=== PATIENT | female | born 1970 | race Caucasian/White ===

== ENCOUNTER → 2019-11-11 | Outpatient (REF) | payer OTHER | LOC: M LAB REF 16:04 | PROVIDERS: ATTEND Otolaryngology | DX: K14.0 Glossitis (principal) ==

== ENCOUNTER 2023-03-27 06:21 | Day surgery (SDC) | payer OTHER ==
[~2023-03-27] VITALS: Ht 165.1 cm; Wt 73.9 kg
[~2023-03-27 06:21] MED LIST: BREO1INH3; FLUO-96 PO; GNPTAB36 PO; IBUP80TA; OXYC-517; SPIR1CAP INH; UNRESOLVED CLARIFICATION ENTRY XX SCH; VARE1TAB2 PO
[2023-03-27] MEDS ORDERED: LR 1,000 ML IV SCH ×2 (06:30→08:15)
[2023-03-27] MEDS ORDERED: MIDAZOLAM INJ 2MG/2ML VIAL As Ordered ONE (07:12)
[2023-03-27] MEDS ORDERED: fentaNYL 100 MCG/2 ML INJECTION As Ordered ONE (07:13)
[2023-03-27] MEDS ORDERED: ROCURONIUM BROMIDE 50MG/5ML VIAL As Ordered ONE (07:14)
[2023-03-27] MEDS ORDERED: KETOROLAC 60MG 2ML VIAL As Ordered ONE (07:14)
[2023-03-27] MEDS ORDERED: LIDOCAINE 2% 100MG/5ML SDV (FOR ANES.) As Ordered ONE (07:14)
[2023-03-27] MEDS ORDERED: propofoL 200 MG/20 ML VIAL As Ordered ONE (07:14)
[2023-03-27] MEDS ORDERED: OXYMETAZOLINE 0.05% NASAL SPRAY (AFRIN) As Ordered ONE (07:15)
[2023-03-27] MEDS ORDERED: METHYLENE BLUE 0.5% (5MG/ML) 10 ML AMP (PROVAYBLUE) As Ordered ONE (07:15)
[2023-03-27] MEDS ORDERED: LIDOCAINE W/EPINEPHRINE 1% 20ML VIAL As Ordered ONE (07:16)
[2023-03-27] MEDS ORDERED: SUGAMMADEX SODIUM 500 MG/5 ML VIAL (BRIDION) As Ordered ONE (07:18)
[2023-03-27] MEDS ORDERED: ONDANSETRON 4MG 2ML VIAL As Ordered ONE (07:19)
[2023-03-27] MEDS ORDERED: ONDANSETRON 4MG 2ML VIAL IV PRN (08:15)
[2023-03-27] MEDS ORDERED: fentaNYL 100 MCG/2 ML INJECTION IV PRN (08:15)
[2023-03-27 11:09] VITALS: BP 122/64; TEMP 97.8; O2SAT 84
== END 2023-03-27 11:14 | disposition home or self-care (01) ==
LOC: M SDC 06:21
PROVIDERS: ATTEND Otolaryngology
DX: J38.3 Other diseases of vocal cords (principal); J44.9 Chronic obstructive pulmonary disease, unspecified; G47.30 Sleep apnea, unspecified; Z79.899 Other long term (current) drug therapy; Z87.891 Personal history of nicotine dependence
CPT/HCPCS: 31536; 88305; J1100; J2250; J2405; J3010; Q9968

== ENCOUNTER 2024-07-28 18:10 | Inpatient (IN) | payer BC, OTHER ==
[~2024-07-28] VITALS: Ht 165.1 cm; Wt 74.0 kg
[~2024-07-28 18:10] MED LIST changes: -UNRESOLVED CLARIFICATION ENTRY XX SCH
[2024-07-28 19:58] LABS: BASO # 0.1 10^3/uL (0.0-0.2); BASO % 0.5 % (0.0-1.0); EOS # 0.2 10^3/uL (0.0-0.5); EOS % 1.6 % (0.0-3.0); HEMATOCRIT 38.3 % (36.0-47.0); HEMOGLOBIN 12.5 g/dl (12.0-15.5); LYMPH # 1.5 10^3/uL (1.5-5.0); LYMPH % 15.7 % (24.0-44.0); MEAN CORPUSCULAR HEMOGLOBIN 30.9 pg (27.0-33.0); MEAN CORPUSCULAR HGB CONC 32.6 g/dl (32.0-36.5); MEAN CORPUSCULAR VOLUME 94.6 fl (80.0-96.0); MONO # 0.5 10^3/uL (0.0-0.8); MONO % 5.2 % (2.0-8.0); NEUTROPHILS # 7.2 10^3/uL (1.5-8.5); NEUTROPHILS % 76.8 % (36.0-66.0); PLATELET COUNT, AUTOMATED 267 10^3/uL (150-450); RED BLOOD COUNT 4.05 10^6/uL (4.00-5.40); WHITE BLOOD COUNT 9.3 10^3/uL (4.0-10.0)
[2024-07-28] MEDS: MORPHINE 4 MG/ML 1ML VIAL IV ONE (20:27)
[2024-07-28] MEDS: NS (Normal Saline) 0.9% 1,000 ML IV SCH ×2 (20:28→23:45)
[2024-07-28 20:31] LABS: LIPASE 384 U/L (12-53)
[2024-07-28 20:33] LABS: ALBUMIN 3.7 G/DL (3.2-5.2); ALKALINE PHOSPHATASE 121 U/L (35-104); ALT/SGPT 16 U/L (7.0-40); AST/SGOT 14 U/L (<34); BILIRUBIN,DIRECT 0.1 MG/DL (<0.4); BILIRUBIN,TOTAL 0.3 MG/DL (0.3-1.2); BLOOD UREA NITROGEN 12 MG/DL (9-23); CALCIUM LEVEL 9.2 MG/DL (8.5-10.1); CARBON DIOXIDE LEVEL 35 MMOL/L (20-31); CHLORIDE LEVEL 97 MMOL/L (98-107); CK-MB VALUE MASS 2.2 NG/ML (<3.6); CPK CREATINE PHOSPHOKINASE 178 U/L (34-145); CREATININE FOR GFR 0.72 MG/DL (0.55-1.30); GLOMERULAR FILTRATION RATE > 60.0 (>51); GLUCOSE, FASTING 103 MG/DL (60-100); MB/CK RELATIVE INDEX 1.23 (< OR =4); POTASSIUM SERUM 4.1 MMOL/L (3.5-5.1); SODIUM LEVEL 143 MMOL/L (136-145); TOTAL PROTEIN 7.1 G/DL (5.7-8.2)
[2024-07-28 21:42] LABS: CK-MB VALUE MASS 3.5 NG/ML (<3.6)
[2024-07-28 21:44] LABS: MB/CK RELATIVE INDEX 2.05 (< OR =4)
[2024-07-28] MEDS: GASTROGRAFIN SOLUTION 30ML PO SCH (21:52)
[2024-07-28] MEDS ORDERED: ISOVUE-370 76% 100ML VIAL As Ordered ONE (22:54)
[2024-07-28] MEDS ORDERED: ACETAMINOPHEN 325 MG TAB PO PRN (23:55)
[2024-07-28] MEDS ORDERED: KETOROLAC 30 MG/ML 1ML VIAL IV PRN (23:55)
[2024-07-28] MEDS ORDERED: MAALOX 30 ML SUSP *UDC PO PRN (23:55)
[2024-07-28] MEDS ORDERED: MOM 30ML SUSPENSION UDC PO PRN (23:55)
[2024-07-28] MEDS ORDERED: ONDANSETRON 4MG 2ML VIAL IV PRN (23:55)
[2024-07-29] VITALS (7 sets, daily range): BP systolic 97–128; BP diastolic 50–82; TEMP 97.9–98.6; O2SAT 94–98
[2024-07-29] MEDS ORDERED: CETI-24 PO (00:33)
[2024-07-29] MEDS ORDERED: ALPR0.25 PO (00:33)
[2024-07-29] MEDS ORDERED: BUDE10.7 INH (00:33)
[2024-07-29] MEDS ORDERED: D 50CAP2 PO (00:33)
[2024-07-29] MEDS ORDERED: IBUP-1022 PO (00:33)
[2024-07-29] MEDS ORDERED: MORP15TA2 PO (00:33)
[2024-07-29] MEDS ORDERED: ALBU8.5H INH (00:33)
[2024-07-29] MEDS ORDERED: HOME MED LIST COMPLETE! XX SCH (00:35)
[2024-07-29] MEDS: NS (Normal Saline) 0.9% 1,000 ML IV SCH (01:00)
[2024-07-29 01:23] LABS: VENOUS BASE EXCESS 1.4 (-2.0-2.0); VENOUS HCO3 27.3 MMOL/L (23.0-27.0); VENOUS O2 SATURATION 96.6 % (60.0-80.0); VENOUS PARTIAL PRESSURE CO2 48.3 mmHg (38.0-50.0); VENOUS PARTIAL PRESSURE O2 89.8 mmHg (30.0-50.0); VENOUS STANDARD HCO3 25.7 MMOL/L; VENOUS TOTAL CO2 28.8 MMOL/L (24.0-28.0)
[2024-07-29 01:42] LABS: INR 1.09; PARTIAL THROMBOPLASTIN TIME 34.5 SECONDS (24.8-34.2); PROTHROMBIN TIME 14.4 SECONDS (12.5-14.5)
[2024-07-29 01:57] LABS: MAGNESIUM LEVEL 1.9 MG/DL (1.8-2.4)
[2024-07-29 01:59] LABS: C REACTIVE PROTEIN QUANTITATIV 1.8 MG/DL (<1.0)
[2024-07-29] MEDS ORDERED: MORPHINE SULFATE TAB IMM. REL. 15 MG PO PRN (02:35)
[2024-07-29] MEDS ORDERED: ALBUTEROL 90 MCG/ACT 8GM HFA INHALER INH PRN (02:35)
[2024-07-29] MEDS: KETOROLAC 30 MG/ML 1ML VIAL IV PRN (03:24)
[2024-07-29 04:45] LABS: KETONE, URINE AUTO RFX NEGATIVE (NEGATIVE); LEUKOCYTE ESTERASE UR AUTO RFX NEGATIVE (NEGATIVE); NITRITE, URINE AUTO RFX NEGATIVE (NEGATIVE); RBC, URINE AUTO RFX 0 /HPF (0-3); SQUAM EPITHELIAL CELL UR AURFX 0 /HPF (0-6); WBC, URINE AUTO RFX 0 /HPF (0-3)
[2024-07-29 05:51] LABS: HEMATOCRIT 31.6 % (36.0-47.0); MEAN CORPUSCULAR HEMOGLOBIN 31.3 pg (27.0-33.0); MEAN CORPUSCULAR HGB CONC 33.2 g/dl (32.0-36.5); PLATELET COUNT, AUTOMATED 212 10^3/uL (150-450); RED BLOOD COUNT 3.36 10^6/uL (4.00-5.40); WHITE BLOOD COUNT 5.5 10^3/uL (4.0-10.0)
[2024-07-29 05:59] LABS: HEMOGLOBIN 10.5 g/dl (12.0-15.5)
[2024-07-29 06:32] LABS: ALBUMIN 2.9 G/DL (3.2-5.2); ALKALINE PHOSPHATASE 94 U/L (35-104); ALT/SGPT 11 U/L (7.0-40); AST/SGOT 11 U/L (<34); BILIRUBIN,TOTAL 0.3 MG/DL (0.3-1.2); BLOOD UREA NITROGEN 6 MG/DL (9-23); CALCIUM LEVEL 8.2 MG/DL (8.5-10.1); CARBON DIOXIDE LEVEL 32 MMOL/L (20-31); CHLORIDE LEVEL 105 MMOL/L (98-107); CREATININE FOR GFR 0.63 MG/DL (0.55-1.30); GLOMERULAR FILTRATION RATE > 60.0 (>51); GLUCOSE, FASTING 102 MG/DL (60-100); MAGNESIUM LEVEL 1.8 MG/DL (1.8-2.4); POTASSIUM SERUM 3.9 MMOL/L (3.5-5.1); SODIUM LEVEL 143 MMOL/L (136-145); TOTAL PROTEIN 5.7 G/DL (5.7-8.2); TRIGLYCERIDES LEVEL 72 MG/DL (<150)
[2024-07-29] MEDS: TIOTROPIUM INHALER/CAPSULE (SPIRIVA) INH SCH (08:00)
[2024-07-29] MEDS: SYMBICORT 160/4.5MCG INHALER 6GM INH SCH (08:00)
[2024-07-29] MEDS ORDERED: BUDESONIDE INH SCH (08:00)
[2024-07-29] MEDS ORDERED: FORMOTEROL INH SCH (08:00)
[2024-07-29] MEDS ORDERED: GLYCOPYRROLATE INH SCH (08:00)
[2024-07-29] MEDS ORDERED: DOCUSATE SODIUM 100MG CAPSULE PO SCH (09:00)
[2024-07-29] MEDS: ENOXAPARIN 40MG/0.4ML SYRINGE (J1650 PER 10MG) SC SCH (09:00)
[2024-07-29] MEDS: PANTOPRAZOLE 40MG VIAL IV SCH ×2 (11:00→20:29)
[2024-07-29] MEDS: CETIRIZINE (ZyrTEC) 10 MG TAB PO SCH (11:15)
[2024-07-29] MEDS: SUCRALFATE SUSP 1GM/10ML UD PO SCH (12:00)
[2024-07-29] MEDS: KETOROLAC 30 MG/ML 1ML VIAL IV SCH (13:26)
[2024-07-29] MEDS: MORPHINE 2 MG/ML 1ML VIAL IV PRN (13:26)
[2024-07-30 04:00] VITALS: BP 101/50; TEMP 98.4; O2SAT 96
[2024-07-30 06:00] LABS: BASO % 0.7 % (0.0-1.0); EOS # 0.2 10^3/uL (0.0-0.5); EOS % 3.5 % (0.0-3.0); HEMATOCRIT 31.8 % (36.0-47.0); HEMOGLOBIN 10.4 g/dl (12.0-15.5); LYMPH # 1.2 10^3/uL (1.5-5.0); LYMPH % 21.7 % (24.0-44.0); MEAN CORPUSCULAR HEMOGLOBIN 31.1 pg (27.0-33.0); MEAN CORPUSCULAR HGB CONC 32.7 g/dl (32.0-36.5); MEAN CORPUSCULAR VOLUME 95.2 fl (80.0-96.0); MONO # 0.5 10^3/uL (0.0-0.8); MONO % 8.1 % (2.0-8.0); NEUTROPHILS # 3.8 10^3/uL (1.5-8.5); NEUTROPHILS % 65.8 % (36.0-66.0); PLATELET COUNT, AUTOMATED 185 10^3/uL (150-450); RED BLOOD COUNT 3.34 10^6/uL (4.00-5.40); WHITE BLOOD COUNT 5.7 10^3/uL (4.0-10.0)
[2024-07-30 06:47] LABS: BLOOD UREA NITROGEN < 5 MG/DL (9-23); CALCIUM LEVEL 8.3 MG/DL (8.5-10.1); CARBON DIOXIDE LEVEL 30 MMOL/L (20-31); CHLORIDE LEVEL 111 MMOL/L (98-107); GLOMERULAR FILTRATION RATE > 60.0 (>51); GLUCOSE, FASTING 114 MG/DL (60-100); POTASSIUM SERUM 4.3 MMOL/L (3.5-5.1); SODIUM LEVEL 147 MMOL/L (136-145)
[2024-07-30 12:00] VITALS: BP 103/50; TEMP 98.2; O2SAT 96
[2024-07-30] MEDS ORDERED: KETOROLAC 30 MG/ML 1ML VIAL IV PRN (13:55)
[2024-07-30 20:00] VITALS: BP 84/66; TEMP 98.8; O2SAT 97
[2024-07-30] MEDS: ALPRAZolam 0.25 MG TAB PO PRN (20:34)
[2024-07-30 21:00] VITALS: O2SAT 97
[2024-07-31 04:00] VITALS: BP 111/70; TEMP 97; O2SAT 98
[2024-07-31 06:05] LABS: BASO % 0.5 % (0.0-1.0); EOS # 0.2 10^3/uL (0.0-0.5); EOS % 3.6 % (0.0-3.0); HEMATOCRIT 33.9 % (36.0-47.0); HEMOGLOBIN 11.2 g/dl (12.0-15.5); LYMPH # 1.2 10^3/uL (1.5-5.0); LYMPH % 21.2 % (24.0-44.0); MEAN CORPUSCULAR HEMOGLOBIN 30.9 pg (27.0-33.0); MEAN CORPUSCULAR VOLUME 93.4 fl (80.0-96.0); MONO # 0.5 10^3/uL (0.0-0.8); MONO % 8.3 % (2.0-8.0); NEUTROPHILS # 3.8 10^3/uL (1.5-8.5); NEUTROPHILS % 66.1 % (36.0-66.0); PLATELET COUNT, AUTOMATED 226 10^3/uL (150-450); RED BLOOD COUNT 3.63 10^6/uL (4.00-5.40); WHITE BLOOD COUNT 5.8 10^3/uL (4.0-10.0)
[2024-07-31 06:28] LABS: BLOOD UREA NITROGEN < 5 MG/DL (9-23); CALCIUM LEVEL 8.5 MG/DL (8.5-10.1); CARBON DIOXIDE LEVEL 31 MMOL/L (20-31); CHLORIDE LEVEL 107 MMOL/L (98-107); CREATININE FOR GFR 0.73 MG/DL (0.55-1.30); GLOMERULAR FILTRATION RATE > 60.0 (>51); GLUCOSE, FASTING 114 MG/DL (60-100); POTASSIUM SERUM 3.8 MMOL/L (3.5-5.1); SODIUM LEVEL 146 MMOL/L (136-145)
[2024-07-31 08:00] VITALS: BP 108/71; TEMP 97.7; O2SAT 97
[2024-07-31] MEDS ORDERED: PANT40TA29 PO (09:13)
[2024-07-31] MEDS: PANTOPRAZOLE 40MG TAB (PROTONIX) PO SCH (09:28)
== END 2024-07-31 11:03 | disposition home or self-care (01) | DRG 282 ==
LOC: M ED 18:10 → M ED INP 18:11 → M MSPAV 07-29 01:25 → OBSVTOIN 07-29 13:59
PROVIDERS: ADMIT Family Medicine; ATTEND Internal Medicine Nephrology
DX: K85.90 Acute pancreatitis without necrosis or infection, unspecified (principal); J96.11 Chronic respiratory failure with hypoxia; Z99.81 Dependence on supplemental oxygen; K29.70 Gastritis, unspecified, without bleeding; J44.9 Chronic obstructive pulmonary disease, unspecified; G47.33 Obstructive sleep apnea (adult) (pediatric); K21.9 Gastro-esophageal reflux disease without esophagitis; F41.9 Anxiety disorder, unspecified; F32.A Depression, unspecified; M47.817 Spondylosis without myelopathy or radiculopathy, lumbosacral region; E78.5 Hyperlipidemia, unspecified; M79.18 Myalgia, other site; Z90.79 Acquired absence of other genital organ(s); Z87.891 Personal history of nicotine dependence; Z79.891 Long term (current) use of opiate analgesic; Z79.899 Other long term (current) drug therapy; Z79.51 Long term (current) use of inhaled steroids; Z88.8 Allergy status to other drugs, medicaments and biological substances; Z85.43 Personal history of malignant neoplasm of ovary; Z85.41 Personal history of malignant neoplasm of cervix uteri